=== PATIENT | male | born 1970 | race Caucasian/White ===

== ENCOUNTER 2020-02-05 02:10 | Observation (INO) | payer BC, SELFPAY ==
--- NOTE | ~2020-02-05 | CT_ITS ---
EXAMINATION: CT abdomen pelvis w con INDICATION: Lower abdominal pain TECHNIQUE: Computed tomographic images of the abdomen and pelvis were obtained after the administrati on of 100 cc of Omnipaque 350 intravenous contrast. The dose-length product (DLP) was 1187.02 mGy-cm. Automated exposure control and iterative reconstruction technique were employed. COMPARISON: None available FINDINGS: Minimal dependent atelectasis is present in the lung bases. The heart size is normal. The l iver, spleen, pancreas, gallbladder, and adrenal glands are normal. The right kidney is unremarkable. There is a 1.3 cm cyst of the left kidney. No pathologically enlarged abdominal or pelvic lymph node s are identified. There is no free intraperitoneal gas or evidence of bowel obstruction. There is mod erate lumbar spondylosis at L5-S1. IMPRESSION: 1. No CT correlate for the patient's symptoms. Reviewed, dictated and finalized at location A.
--- NOTE | ~2020-02-05 | US_ITS ---
EXAMINATION: US right upper quadrant DATE: 02/05/2020 09:19 INDICATION: Right upper quadrant abdominal pain. TECHNIQUE: Multiple grayscale and Doppler ultrasound images of the abdomen were obtained. COMPARISON: CT abdomen and pelvis 02/05/2020 FINDINGS: The visualized portions of the head of the pancreas are normal. There is diffuse hepatic st eatosis. The gallbladder is normal in size. No gallstones or gallbladder wall thickening. There was n o sonographic Tee sign. The common duct is normal and measures 3 mm. IMPRESSION: 1. Diffuse hepatic steatosis. Reviewed, dictated and finalized at location A.
--- NOTE | ~2020-02-05 | XR_ITS ---
EXAMINATION: XR abdomen/kub 1V INDICATION: Right-sided back pain TECHNIQUE: Supine view of the abdomen is obtained. COMPARISON: None FINDINGS: The bowel gas pattern is normal. Phleboliths are noted in the pelvis. There is a moderate v olume of colonic stool. 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 IMPRESSION: 1. No radiographic correlate for the patient's symptoms. Reviewed, dictated and finalized at location A.
[2020-02-05 02:16] VITALS: BP 135/97; PULSE 77; RESP 20; TEMP 36.7; O2SAT 99
[2020-02-05 02:50] LABS: Basophils Percent Auto 0.7 % (0.2-1.2); Eosinophils Absolute Auto 0.1 K/mm3 (0-0.3); Eosinophils Percent Auto 2.9 % (0-4.4); Hematocrit 41.9 % (42.0-52.0); Hemoglobin 14.4 g/dL (14.0-18.0); Immature Granulocyte Absolute 0.02 K/mm3 (0.00-0.031); Immature Granulocyte Percent A 0.5 % (0-0.5); Lymphocytes Absolute Auto 2.09 K/mm3 (0.9-3.2); Mean Corpuscular HGB Conc 34.4 g/dl (32-36); Mean Corpuscular Hemoglobin 30.4 pg (26-34); Mean Corpuscular Volume 88.6 fl (80-100); Mean Platelet Volume 9.6 fl (7.4-10.4); Monocytes Absolute Auto 0.3 K/mm3 (0.1-0.6); Monocytes Percent Auto 8.1 % (2.6-8.5); Neutrophils Absolute Auto 1.6 K/mm3 (1.3-6.7); Neutrophils Percent Auto 37.8 % (45.5-73.1); Platelet Count Result 212 k/mm3 (150-375); Red Blood Count 4.73 M/mm3 (4.6-6.20); White Blood Count 4.2 K/mm3 (4.5-10.0)
[2020-02-05 02:57] LABS: Add Urine Microscopic? YES; Appearance Urine Clear (Clear); Bilirubin Urine Negative (Negative); Blood Urine Negative (Negative); Color Urine Yellow (Yellow); Glucose Urine UA Negative (Negative); Ketones Urine Negative (Negative); Leukocyte Esterase Ur Negative LEU/UL (Negative); Mucus Urine Moderate /lpf; Nitrate Urine Negative (Negative); Protein Urine Negative (Negative); RBC Urine 0-2 /hpf (0-2); Squamous Epithelial Cell Urine Rare /hpf (Few); WBC Urine 0-3 /hpf
[2020-02-05 03:02] LABS: Alanine Aminotransferase 28 U/L (4-50); Albumin Level 4.6 g/dL (3.5-5.1); Alkaline Phosphatase 73 U/L (38-126); Anion Gap 9 mmol/L (8-16); Aspartate Amino Transferase 31 U/L (17-59); Bilirubin,Total 0.5 mg/dL (0.2-1.3); Blood Urea Nitrogen 15 mg/dL (9-20); Calcium 8.6 mg/dL (8.4-10.2); Carbon Dioxide 27 mmol/L (22-30); Chloride 103 mmol/L (98-107); Estimated CRCL calculation 105 ml/min; Estimated Glomerular Filt Rate > 60; Glucose 119 mg/dL (75-110); Lipase 1153 U/L (23-300); Potassium 3.9 mmol/L (3.4-5.0); Sodium 139 mmol/L (137-145)
--- NOTE | 2020-02-05 03:56 | ED.ABDPAIN ---
HPI - Abdominal Pain General Chief Complaint: Abdominal Pain Stated Complaint: abd/chest pain Time Seen by Provider: 02/05/20 03:37 Source: patient Mode of arrival: ambulatory Limitations: no limitations History of Present Illness HPI narrative: This patient is a 49 year male who presents for evaluation of abdominal pain. He states last night he developed right lower back pain. He states he later developed diffuse abdominal pain . He has not associated nausea or vomiting. HE denies urinary complaints. He tried taking hydrocodone for his pain without relief. HE denies history of kidney stones or gallstones. MD elicited complaint: abdominal pain Related Data Home Medications Medication Instructions Recorded Confirmed No Home Medications 02/05/20 02/05/20 Allergies Allergy/AdvReac Type Severity Reaction Status Date / Time No Known Allergies Allergy Mild Unverified 02/05/20 02:15 Review of Systems Review of Systems: All systems reviewed & are unremarkable except as noted in HPI and below Constitutional: Constitutional: Denies chills and Denies fever(s) Cardiovascular: Cardiovascular: Denies chest pain Respiratory: Respiratory: Denies cough and Denies dyspnea Gastrointestinal: Gastrointestinal: Reports abdominal pain, Denies diarrhea, Denies nausea and Denies vomiting PMFSH Past Medical History Medical History Patient denies medical problems Surgical History Surgical History No significant past surgical history Social History Social History (Updated 02/05/20 @ 06:40 by Rosalie Stoddard RN) Smoking status: Never smoker Alcohol intake: current Drinks per week: 1 Substance use: never Substance use type: does not use Living arrangements: with family Occupation/Education: occupation Gender identity (if verbalized by the patient): Male Sexual Orientation (if Verbalized by the Patient): Straight or Heterosexual Spiritual care concerns: No Agree to blood products: Yes Exam Narrative: Exam Narrative: GENERAL: Well-appearing, well-nourished, and in no acute distress. HEAD: Normocephalic, atraumatic THROAT:Mucous membranes moist, Oropharynx normal without erythema, exudate, peritonsillar swelling or fluctuance NECK: Supple, without lymphadenopathy or mass RESPIRATORY: No respiratory distress, Airway patent, Respirations non-labored, Clear to auscultation without rales, rhonchi or wheeze HEART: Regular rate and rhythm. No murmur heard. Normal peripheral pulses. ABDOMEN: Soft,RLQ tenderness, nondistended, normal active bowel sounds. No masses. No rebound or guarding, No organomegaly. EXTREMITIES: No edema, normal strength with full range of motion. SKIN: Warm, dry, normal color without rash NEURO: Alert and oriented x3. CN 2-12 grossly intact. No focal deficits. PSYCH: Normal mood and affect. Course Reevaluation(s) Reevaluation #1: I discussed with patient plan to admit for pancreatitis. He is agreeable. He states he feels better Date: 02/05/20 Time: 05:14 Consultations Consultation #1: I discussed case with Dr. Dahl who accepts for observation. Date: 02/05/20 Time: 05:15 Vital Signs Vital signs: Vital Signs Temperature 98.0 F 02/05/20 02:16 Pulse Rate 77 02/05/20 02:16 Respiratory Rate 20 02/05/20 02:16 Blood Pressure 135/97 H 02/05/20 02:16 Pulse Oximetry 99 02/05/20 02:16 Temperature 97.7 F 02/05/20 06:32 Pulse Rate 67 02/05/20 06:32 Respiratory Rate 16 02/05/20 06:32 Blood Pressure 151/96 H 02/05/20 06:32 Pulse Oximetry 100 02/05/20 06:32 MDM - Abdominal Pain Lab Data Attestation: I reviewed the patient's lab results. Result diagrams: 02/05/20 02:29 02/05/20 02:29 Labs: Lab Results 02/05/20 02/05/20 02/05/20 Range/Units 02:29 02:29 02:29 WBC 4.2 L (4.5-10.0) K/mm3 RB
[2020-02-05] MEDS: LACTATED RINGERS 1,000 ML 999 ML IV CONT (04:02)
--- NOTE | 2020-02-05 04:38 | ECG_ITS ---
Measurements Intervals [place] Rate: 63 P: 38 CT: 167 QRS: 17 QRSD: 95 T: 18 QT: 358 QTc: 367 Interpretive Statements SINUS RHYTHM NORMAL ECG Electronically Signed On 02-05-2020 8:13:16 CDT by Vern Pringle D.O.
[2020-02-05 04:53] VITALS: BP 138/91; PULSE 68; RESP 17; O2SAT 99
--- NOTE | 2020-02-05 06:12 | PM.IMHP ---
H&P: HPI History of Present Illness Date/Time: 02/05/20 06:12 Chief complaint: acute pancreatitis Narrative: This is a pleasant 49 year old male who is known to previously be healthy who presented to the hospital with a complaint of RLQ abdominal pain that started this evening. He describes sitting at his computer and working tonight when he started to develop right lower back pain. He took one of his 's leftover [place] from when she had a kidney stone and then tried to go to bed. He then started to experience worsening RLQ abdominal pain that didn' allow him to sleep and so he decided to come to the hospital. The patient denies any abdominal trauma, fevers, chills, cough, shortness of breath, nausea, vomiting, diarrhea, hematuria, dysuria, or rectal bleeding. He has no history of any abdominal surgeries. In the ER tonight he was evaluated and his Lipase came back elevated [place] 1153. CT abd/pelvis was unremarkable for any acute abdominal pathology. He has no previous history of pancreatitis and does not drink alcohol regularly. His abdominal pain improved without any further medication while he was in the ER tonight. We have been asked to admit him to the hospital for further care. He has no other complaints. Review of Systems Review of Systems: All systems reviewed & are unremarkable except as noted in HPI and below PMFSH Past Medical History Medical History Patient denies medical problems Surgical History Surgical History No significant past surgical history Family History Family History (Updated 02/05/20 @ 06:17 by Dean Dahl MD) Father Diabetes mellitus Sibling Hyperlipidemia Social History Social History Smoking status: Never smoker Alcohol intake: current Drinks per week: 1 Substance use: never Substance use type: does not use Living arrangements: with family Occupation/Education: occupation Gender identity (if verbalized by the patient): Male Sexual Orientation (if Verbalized by the Patient): Straight or Heterosexual Spiritual care concerns: No Agree to blood products: Yes Meds Home Medications and Allergies Home Medications Medication Instructions Recorded Confirmed Type No Home Medications 02/05/20 02/05/20 History Allergies Allergy/AdvReac Type Severity Reaction Status Date / Time No Known Allergies Allergy Mild Unverified 02/05/20 02:15 Vital Signs Vital Signs - 24 hr 02/05/20 02:16 02/05/20 04:53 Temperature 36.7 C Pulse Rate 77 68 Respiratory Rate 20 17 Blood Pressure 135/97 H 138/91 H Pulse Oximetry 99 99 Exam Const: General: cooperative, no acute distress, alert and awake Nutritional Appearance: obese Orientation/consciousness: patient oriented x3 HENMT: Head: normal to inspection General nose exam: Normal external nose present Face and sinus: normal facial exam Mouth: Yes Normal oral and palatal mucosa present and Yes oropharynx normal Eyes: Pupils: Equal, round and reactive pupils present EOM: EOMs intact bilaterally Neck: Neck: supple and no JVD Thyroid: thyroid normal Lymphatic: lymphadenopathy not noted Resp: Effort & Inspection: normal respiratory effort Auscultation: clear to auscultation bilaterally Cardio: Rate: regular rate Rhythm: regular rhythm Heart sounds: no murmurs GI: Inspection: normal to inspection, no abdominal wall ecchymosis, no edema, non-distended and no visible herniation GI Palp: Yes abdominal tenderness (RLQ++ ), No Rebound tenderness present and Yes Other GI palpation findings present (Tee's sign negative, Obturator sign negative, Psoas sign neg) Auscultation: normal bowel sounds Rectal Exam: deferred Skin: General skin exam: normal color and no rashes or lesions noted Neuro: General: patient oriented x3 Cranial nerves: Ye
[2020-02-05 06:14] VITALS: BP 141/95; PULSE 68; RESP 16; O2SAT 98
--- NOTE | 2020-02-05 06:25 | ADMGEN ---
This patient, Montrell Parker, was admitted to Medical Room 341-01 at 0625. Patient/family oriented to hospital policies and general routines including ID bracelet, bed and alarms, visiting hours, pain management, procedures, bathroom and other care routines, personal items, smoking policy, room service/diet, and visiting hours. Valuables list has been completed. Information on how to activate the Rapid Response Team has been discussed. Patient/Family are encouraged to report perceived risks to care and to ask questions if they do not understand what they are told or what they should do.
[2020-02-05 06:32] VITALS: BP 151/96; PULSE 67; RESP 16; TEMP 36.5; O2SAT 100
[2020-02-05 06:33] VITALS: BMI 33.8
[2020-02-05 06:43] VITALS: BMI 33.8
[2020-02-05] MEDS: SODIUM CHLORIDE 0.9% IV 1,000 ML 125 ML IV CONT ×3 (07:15→22:05)
[2020-02-05 10:19] LABS: Basophils Percent Auto 0.7 % (0.2-1.2); Eosinophils Absolute Auto 0.1 K/mm3 (0-0.3); Eosinophils Percent Auto 1.4 % (0-4.4); Hematocrit 37.8 % (42.0-52.0); Hemoglobin 13.1 g/dL (14.0-18.0); Immature Granulocyte Absolute 0.01 K/mm3 (0.00-0.031); Immature Granulocyte Percent A 0.2 % (0-0.5); Lymphocytes Absolute Auto 1.66 K/mm3 (0.9-3.2); Lymphocytes Percent Auto 37.6 % (18.3-44.2); Mean Corpuscular HGB Conc 34.7 g/dl (32-36); Mean Corpuscular Hemoglobin 30.3 pg (26-34); Mean Corpuscular Volume 87.3 fl (80-100); Mean Platelet Volume 9.7 fl (7.4-10.4); Monocytes Absolute Auto 0.3 K/mm3 (0.1-0.6); Monocytes Percent Auto 7.2 % (2.6-8.5); Neutrophils Absolute Auto 2.3 K/mm3 (1.3-6.7); Neutrophils Percent Auto 52.9 % (45.5-73.1); Platelet Count Result 182 k/mm3 (150-375); Red Blood Count 4.33 M/mm3 (4.6-6.20); Red Cell Distribution Width 12.9 % (11.5-14.5); White Blood Count 4.4 K/mm3 (4.5-10.0)
[2020-02-05 10:44] LABS: Lipase 421 U/L (23-300)
[2020-02-05 10:45] LABS: Cholesterol 234 mg/dL (0-200); HDL Direct 29 mg/dL; Triglycerides 134 mg/dL (<150)
[2020-02-05 10:55] LABS: LDL Cholesterol Direct 164 mg/dL
[2020-02-05 14:00] VITALS: BP 137/80; PULSE 75; RESP 16; TEMP 36.6; O2SAT 98
--- NOTE | 2020-02-05 15:53 | PM.IMPN ---
Progress Note: A&P Assessment and Plan (1) Acute pancreatitis: Qualifiers: Pancreatitis type: idiopathic Acute pancreatitis complication: no infection or necrosis Qualified Code(s): K85.00 - Idiopathic acute pancreatitis without necrosis or infection Code(s): K85.90 - Acute pancreatitis without necrosis or infection, unspecified Status: Acute Assessment and Plan: Most likely idiopathic. Denies regular alcohol use. Triglycerides within normal limits. RUQ US showed normal gallbladder and no gallstones. Pancreas was normal on CT. Lipase was elevated at 1100 at presentation and has improved to 400 today. Begin clear liquid diet. Advance diet as tolerated. Analgesics as needed Continue IV fluids Monitor lipase (2) Hepatic steatosis: Code(s): K76.0 - Fatty (change of) liver, not elsewhere classified Status: Acute Assessment and Plan: Evident on RUQ US. LFTs are within normal limits. Lifestyle changes including balanced diet and exercise encouraged (3) Abnormal finding on CT scan: Code(s): R93.89 - Abnormal findings on diagnostic imaging of other specified body structures Status: Acute Assessment and Plan: 1.3 cm cyst of left kidney incidentally found on CT a/p. Benign appearing. Follow up with PCP for further monitoring as an outpatient. Subjective Date/time seen: 02/05/20 15:53 Interval history: Date of service: 02/05/2020 Mr. Parker is a healthy 49 year old male who is seen in follow up for acute pancreatitis. He reports he is feeling better today and his pain is better. He continues to endorse mild discomfort in his lower abdomen with radiation into his mid-lower back. He denies epigastric pain or RUQ pain. He denies fever, chills, nausea, or vomiting. His last BM was yesterday morning. He has not had a bowel movement today or passed gas. He denies abdominal cramping or bloating. He denies headache, confusion, congestion, cough, shortness of breath, chest pain, or palpitations. He has no additional concerns. He would like to attempt clear liquids at this time. Review of Systems Review of Systems: Narrative: A 12 point review of systems was reviewed with pertinent positives and negatives as per HPI. Exam Narrative: Exam Narrative: Mr. Parker is a well nourished 49 year old male who is lying supine in bed. He appears comfortable and is in NARD. HR 67, BP 151/96, RR 16, T 97.7, 100% on room air Neuro: awake, alert and oriented x4, speech clear, no focal neuro deficits noted HEENMT: normocephalic, atraumatic, EOMI, sclerae anicteric, moist oral mucosa, normal oropharynx Neck: supple, no lymphadenopathy Respiratory: clear to auscultation bilaterally, nonlabored breathing Cardio: regular rate, regular rhythm with S1-S2 Abdomen: nondistended, normoactive bowel sounds, soft, nontender to palpation, no rigidity or guarding, no rebound tenderness Extremities: no edema, erythema, cyanosis, clubbing, or tenderness to palpation, DP pulses 2+ bilaterally Skin: no rashes or lesions, warm and dry Psych: appropriate mood and affect Objective Data Vital Signs Vital Signs: Vital Signs - 24 hr 02/05/20 02:16 02/05/20 04:53 02/05/20 06:14 Temperature 98.0 F Pulse Rate 77 68 68 Respiratory Rate 20 17 16 Blood Pressure 135/97 H 138/91 H 141/95 H Pulse Oximetry 99 99 98 02/05/20 06:32 02/05/20 14:00 Temperature 97.7 F 97.8 F Pulse Rate 67 75 Respiratory Rate 16 16 Blood Pressure 151/96 H 137/80 Pulse Oximetry 100 98 Intake/Output Intake/Output: Intake & Output 02/02/20 02/03/20 02/04/20 02/05/20 23:59 23:59 23:59 23:59 Intake Total 2480 Balance 2480 Meds/Results Medications: Active Medications Generic Name Dose Route Start Last Admin Trade Name Williamq PRN Reason Stop Dose Admin Enoxaparin Sodium 40 mg 02/06/20 09:00 Lovenox SUB-Q DAILY TARIQ Famotidine 20 mg 02/05/20 21:00 Pepcid Iv IV P
[2020-02-05 21:44] VITALS: BP 152/86; PULSE 64; RESP 16; TEMP 36.7; O2SAT 99
[2020-02-05] MEDS: FAMOTIDINE 20 MG/2 ML VIAL IV PUSH (22:00)
[2020-02-06 06:19] VITALS: BP 156/96; PULSE 69; RESP 16; TEMP 36.6; O2SAT 99
[2020-02-06] MEDS: SODIUM CHLORIDE 0.9% IV 1,000 ML 125 ML IV CONT (06:51)
[2020-02-06 06:52] LABS: Eosinophils Absolute Auto 0.1 K/mm3 (0-0.3); Eosinophils Percent Auto 2.3 % (0-4.4); Hematocrit 37.7 % (42.0-52.0); Hemoglobin 12.8 g/dL (14.0-18.0); Immature Granulocyte Absolute 0.01 K/mm3 (0.00-0.031); Immature Granulocyte Percent A 0.3 % (0-0.5); Lymphocytes Absolute Auto 1.98 K/mm3 (0.9-3.2); Lymphocytes Percent Auto 50.6 % (18.3-44.2); Mean Corpuscular Hemoglobin 29.8 pg (26-34); Mean Corpuscular Volume 87.9 fl (80-100); Monocytes Absolute Auto 0.3 K/mm3 (0.1-0.6); Monocytes Percent Auto 6.4 % (2.6-8.5); Neutrophils Absolute Auto 1.5 K/mm3 (1.3-6.7); Neutrophils Percent Auto 39.4 % (45.5-73.1); Platelet Count Result 186 k/mm3 (150-375); Red Blood Count 4.29 M/mm3 (4.6-6.20); Red Cell Distribution Width 12.9 % (11.5-14.5); White Blood Count 3.9 K/mm3 (4.5-10.0)
[2020-02-06 07:13] LABS: Alanine Aminotransferase 22 U/L (4-50); Albumin Level 3.8 g/dL (3.5-5.1); Alkaline Phosphatase 60 U/L (38-126); Anion Gap 7 mmol/L (8-16); Aspartate Amino Transferase 24 U/L (17-59); Bilirubin,Total 0.7 mg/dL (0.2-1.3); Blood Urea Nitrogen 8 mg/dL (9-20); Calcium 8.1 mg/dL (8.4-10.2); Carbon Dioxide 24 mmol/L (22-30); Chloride 107 mmol/L (98-107); Estimated CRCL calculation 118 ml/min; Estimated Glomerular Filt Rate > 60; Glucose 99 mg/dL (75-110); Lipase 80 U/L (23-300); Potassium 4.1 mmol/L (3.4-5.0); Sodium 138 mmol/L (137-145)
[2020-02-06] MEDS: FAMOTIDINE 20 MG/2 ML VIAL IV PUSH (08:28)
[2020-02-06] MEDS: ENOXAPARIN 40 MG/0.4 ML SYRINGE SUB-Q (08:28)
--- NOTE | 2020-02-06 13:55 | PM.DS ---
DS: Admitting Diagnosis Admitting Diagnosis Admitting Diagnosis: acute pancreatitis DS: Discharge Diagnosis Discharge Diagnosis (1) Acute pancreatitis: Qualifiers: Acute pancreatitis complication: no infection or necrosis Pancreatitis type: idiopathic Qualified Code(s): K85.00 - Idiopathic acute pancreatitis without necrosis or infection Code(s): K85.90 - Acute pancreatitis without necrosis or infection, unspecified Status: Acute Assessment and Plan: Most likely idiopathic. He denied regular alcohol use. Triglycerides were within normal limits. RUQ US showed normal gallbladder and no gallstones. Pancreas was normal on CT. Lipase was elevated at 1100 at presentation and declined to normal limits. Patient was able to advance his diet and tolerated low-fat diet. His abdominal pain resolved. Low-fat, bland diet was encouraged. (2) Hepatic steatosis: Code(s): K76.0 - Fatty (change of) liver, not elsewhere classified Status: Acute Assessment and Plan: Evident on RUQ US. LFTs were within normal limits. Lifestyle changes including balanced diet and exercise were encouraged. (3) Abnormal finding on CT scan: Code(s): R93.89 - Abnormal findings on diagnostic imaging of other specified body structures Status: Acute Assessment and Plan: 1.3 cm cyst of left kidney incidentally found on CT a/p. Benign appearing. These findings were discussed with him. Follow up with PCP for further monitoring as an outpatient. (4) Hypercholesterolemia: Code(s): E78.00 - Pure hypercholesterolemia, unspecified Status: Acute Assessment and Plan: Lipid panel performed given pancreatitis showing elevated cholesterol levels at 234. LDL and HDL adequate. Triglycerides within normal limits. Lifestyle changes including diet and exercise were discussed, as above. Will defer initiating statin therapy to PCP. DS: Summary Hospital Course Reason for hospitalization: Abdominal pain Hospital Course: date of admission: 02/05/2020 date of discharge: 02/06/2020 Montrell Parker is a healthy 49-year-old male who has no past medical problems and is on no medications. He presented to the emergency department on 02/05/2020 with complaints of diffuse abdominal pain with radiation into the lower back. He denied nausea or vomiting. He had no relief with [place] at home. He has no history of abdominal surgeries, gallstones, or kidney stones. At presentation, vital signs stable, WBC 4.2, electrolytes stable, lipase elevated at 1153, urinalysis clear with no blood, abdominal x-ray with normal bowel gas pattern, and CT a/p with no acute findings and no clinical correlate for symptoms. He was admitted to the hospitalist service for further evaluation and management of idiopathic pancreatitis. Please see above for further details. He advanced from NPO diet to low-fat and tolerated this well. His abdominal pain resolved entirely. He began feeling much better and requested discharge. Given his overall improvement, he was determined to no longer require inpatient care. We discussed worrisome signs and symptoms for which he should return. All questions were answered. He does not have a primary care provider, therefore he was provided with a list and encouraged to establish care. He was discharged in hemodynamically stable condition on 02/06/2020. Status at Discharge Functional status at discharge: independent ambulation Overall status at discharge: patient is back to baseline Time Spent with Patient Time attestation: Total time spent providing and/or coordinating discharge services: 40 minutes Time spent: Greater than 30 minutes Exam Narrative: Exam Narrative: Mr. Parker is a well nourished 49 year old male who is lying supine in bed. He appears comfortable and is in NARD. HR 69, BP 156/96, RR 16, T 97.9, 99% on room air Neuro: awake, alert and oriented x4, speech clear, no fo
[2020-02-06 14:10] VITALS: BP 133/84; PULSE 70; RESP 16; TEMP 36.4; O2SAT 100
== END 2020-02-06 14:28 | disposition home or self-care (01) ==
LOC: ANHED 05:17 → ANH3MED 05:46
PROVIDERS: Physician Assistant; Admitting Provider Family Medicine; Emergency Provider General Practice; Visit Provider Family Medicine
DX: K85.90 Acute pancreatitis without necrosis or infection, unspecified (principal); R74.8 Abnormal levels of other serum enzymes; K76.0 Fatty (change of) liver, not elsewhere classified; N28.1 Cyst of kidney, acquired; E78.00 Pure hypercholesterolemia, unspecified
CPT/HCPCS: 36415; 74018; 74177; 76705; 80053; 80061; 81001; 83690; 85025; 93005; 96361; 96372; 96374; 96376; 99285; G0378; J1650; J7030; J7120; Q9967